=== PATIENT | female | born 1985 | race Caucasian/White ===

== ENCOUNTER → 2018-05-25 10:27 | Outpatient (CLI) | payer OTHER, SELFPAY ==
[2018-05-25 12:52] LABS: Glucose, Dipstick Normal (Normal); Ketone-Dipstick Negative (Negative); Leukocyte Esterase-Dipstick 500 /ul (Negative); Nitrite-Dipstick Negative (Negative); Occult Blood-Urine 10 /ul (Negative); Protein-Dipstick Negative (Negative); Specific Gravity, Urine 1.015 (1.002-1.030); Urine Bilirubin Dipstick Negative (Negative); Urine Urobilinogen Normal (Normal); Urine pH 6.5 (5.0 - 8.0)
[2018-05-25 12:55] LABS: Color, Urine Yellow (Yellow); Urine Clarity Clear (Clear)
[2018-05-25 13:00] LABS: Absolute Lymphocyte Count 2.06 X10^3/ul (0.83-4.51); Absolute Neutrophil Count 7.7 X10^3/uL (2.0-7.7); Basophil# 0.01 X10^3/uL; Basophil% 0.1 % (0-1); Eosinophil# 0.03 X10^3/uL; Eosinophils% 0.3 % (0-5); Hematocrit 42.1 % (37-47); Hemoglobin 13.5 g/dl (12.0-15.0); Lymphocyte # 2.06 X10^3/ul (4.0); Lymphocyte % 19.7 % (19-41); Mean Corp Hgb Conc 32.1 g/gl (32-36); Mean Corpuscular Hgb 26.5 pg (27.0-32.0); Mean Corpuscular Volume 82.7 fL (81-99); Mean Platelet Vol. 10.4 fl (6.2-12.0); Monocyte# 0.68 X10^3/uL; Monocyte% 6.5 % (0-10); Neutrophil # 7.65 X10^3/uL (2.7-7.7); Neutrophil % 73.1 % (47-70); POSITIVE COUNT NO; POSITIVE DIFFERENTIAL NO; POSITIVE MORPHOLOGY NO; Platelet Count 214 K/mm3 (150-450); RBC Distribution Width CV 13.8 % (11.6-14.6); RBC Distribution Width SD 41.5 fl (35.1-43.9); Red Blood Count 5.09 M/mm3 (4.2-5.4); White Blood Count 10.5 K/mm3 (4.4-11.0)
[2018-05-25 13:18] LABS: Thyroid Stim Hormone (TSH) 0.53 uIU/mL (0.358-3.74)
[2018-05-25 13:59] LABS: HIV - WCH Non-Reactive (Nonreactive); Rubella IgG 487.2 IU/mL
[2018-05-26 03:51] LABS: Prenatal RPR NONREACTIVE (NONREACTIVE)
[2018-05-26 10:33] LABS: HEPATITIS B SURFACE AG Negative (Negative); Hep C Antibodies <0.1 s/co ratio (0.0-0.9)
== END ==
PROVIDERS: Visit Provider Obstetrics & Gynecology
DX: Z34.81 Encounter for supervision of other normal pregnancy, first trimester (principal)
CPT/HCPCS: 36415; 81002; 84443; 85025; 86703; 86762; 86803; 87340

== ENCOUNTER → 2018-09-19 09:02 | Outpatient (CLI) | payer OTHER, SELFPAY ==
[2018-09-19 10:48] LABS: Hematocrit 40.9 % (37-47); Hemoglobin 12.8 g/dl (12.0-15.0); Mean Corp Hgb Conc 31.3 g/gl (32-36); Mean Corpuscular Hgb 27.3 pg (27.0-32.0); Mean Corpuscular Volume 87.2 fL (81-99); Mean Platelet Vol. 10.7 fl (6.2-12.0); Platelet Count 171 K/mm3 (150-450); RBC Distribution Width CV 14.1 % (11.6-14.6); RBC Distribution Width SD 43.7 fl (35.1-43.9); Red Blood Count 4.69 M/mm3 (4.2-5.4); White Blood Count 11.9 K/mm3 (4.4-11.0)
[2018-09-19 10:49] LABS: Scan Indicated on CBC? Y/N NO
[2018-09-19 10:53] LABS: Glucose Challenge Gest 1H 50g 97 mg/dL (70-140)
== END ==
PROVIDERS: Visit Provider Obstetrics & Gynecology
DX: Z34.82 Encounter for supervision of other normal pregnancy, second trimester (principal)
CPT/HCPCS: 82950; 85027

== ENCOUNTER → 2018-11-22 09:52 | Outpatient (CLI) | payer OTHER, SELFPAY | PROVIDERS: Visit Provider Obstetrics & Gynecology | DX: Z36.85 Encounter for antenatal screening for Streptococcus B (principal) | CPT/HCPCS: 87077; 87081; 87186 ==

== ENCOUNTER 2018-12-14 04:50 | Inpatient (IN) | payer OTHER, SELFPAY ==
[2018-12-14] MEDS: Lactated Ringers 1,000 ML 50 ML IV ×2 (05:36→06:46)
[2018-12-14 06:03] VITALS: BMI 26.5
--- NOTE | 2018-12-14 06:03 | HP.PCM_ITS ---
History and Physical Date of Admission: 12/14/18 HISTORY AND PHYSICAL (12/14/2018) Name: ESTEBAN YING OB Physician: SHERI [place]'s Physician: DR. JACQUI HORTON ...................................................................... : 1985 Age: 33 Address: [address] [place] [address] Phone: (h) [phone] (o) [phone] Insurance Carrier: [employer] [id number] Emergency Contact: STEPHAN ORELLANA [phone] ...................................................................... History of present illness: 33-year-old multiparous patient presents in active labor. care has been uneventful otherwise. Final CLINT: 12/13/18 By Ultrasound: 11w1d PARITY: (G-Total Pregnancies P-Fullterm,Premature,Induced AB,Spont AB, Ectopics, Multiple,Living) CLINT CONFIRMATION: By LMP: 03/01/18 Initial Exam: 12/06/18 By First Ultrasound Exam: 12/13/18 Final CLINT: 12/13/18 OB PROBLEM LIST: 3 prior first trimester losses. taking prometrium 400mg at HS as directed Declines MSAFP and CF testing 's father has Hemophilia ALLERGIES: NKDA MEDICATIONS: 27-0.8 mg tablet One pill by mouth once a day Prometrium 200 mg capsule take 2 caps q hs until 12 wk EGA SOCIAL HISTORY: Smoking - Never Alcohol Use - denies drinking Diet - balanced Diet, caffeine < 2 drinks per day and drinks 8 glasses water daily Lifestyle - low stress lifestyle and Exercise - regular Employer - [employer] Job Description - Rentals Coordinator Illicit Drug Use - denies use of street drugs Sexual Activity - and [employer] Residence - lives with Place of - [place] Hours Worked - 6-8 hrs/week Spouse-Sig Other Name - Stephan Spouse-Sig Other Occupation - [employer] Spouse-Sig Other Phone No - [phone] cell Children Name(s) - Gabrielle (EB), Ron (girl) (EB) PRIOR DELIVERY HISTORY DEL DATE GEST LAB WT LB WT OZ TYPE ANES LABOR TX May 12 6 0 0 0 Sab None No 01 Nov 13 8 0 0 0 Sab None No 14 Feb 16 6 0 0 0 Vag None No 18 Apr 17 40 9 8 15 Vagin Epidural No 26 Oct 14 41 7 7 6 Vag Epidural No ANTEPARTUM FLOW CHART VISIT GE RTC FU F F DC U U DATE WK MD WKS HT PN HR M SS BP ED WT DC GL D EF ST __ ____ ___ __ __ ___ __ __ __ ___ __ __ __ ___ __ November ELB 1 39 V + + 126/76 0 170 - - 3 50 -2 November ELB 1 36 V + + 126/70 170 - - 3 50 -2 November ELB 1 36 V + + 110/80 0 167 - - 3 hi November ELB 1 37 V + + 102/80 0 171 tr - 2+ 75 -2 Oct ELB 1 36 V + + 110/68 0 169 tr - 15 Oct ELB 2 33 - + + 102/70 0 167 - - 01 Oct ELB 2 31 - + + 110/68 sl 166 tr - Oct 14 ELB 2 30 - + + 100/70 0 165 tr - 05 Oct 11 ELB 2 28 - + + 128/64 0 163 - - 04 Sep 09 ELB 4 24 - + + 100/70 0 156 tr - 07 Aug 05 ELB 4 - V U+ + 108/64 153 - - 03 Jun 30 ELB 5 - - + O 108/64 151 tr - 08 May 28 ELB 4 - - U+ O 104/70 151 - - ANTEPARTUM NOTE(S): Dec 13 2018: doing well, occ. contactions light spotting Dec 06 2018: No problems Nov 29 2018: feeling well. Cervix check. November 22 2019: see note Nov 13 2019: declines GBS today Oct 30 2019: Oct 16 2019: see note Oct 04 2018: doing well, reviewed FM, PTL Sep 19 2018: Glucola Aug 21 2018: doing well, glucola given Jul 24 2018: No problems Jun 19 2018: May 25 2018: COMPREHENSIVE ANTEPARTUM NOTE(S): Nov 28 2018: H taken to OB. tkg Nov 25 2018: GBS POSITIVE EB Nov 22 2018: Ying is being seen for PNV. Pt is feeling well. She states she has pulled muscle pain when coughing due to vomitig from stomach bug the beginning of this week. GBS today. AM Nov 19 2018: Call Msg from 9:25 AM this morning. Pt of Dr. Prather. Ying called w/concern of vomiting since 11 PM last night. States apprx every hour. No diarrhea. Temp 98.4. Thinks she may have food poisoning as she and her children went to a friend's for dinner last night. Her 4 and 2 yrs olds have also been vomiting. Most recent episode for Ying around 8:30 this morning adding she thinks it is beginning to slow down. Has been trying to take sips of water. Wondering if she needed to go to the hosp? Reporting good FM. Offered she can go in for fluids, but given it is slowing down, could try to focus on oral fluids for the next couple of hours at home and see how it goes. If still vomiting, then would need to go in for fluids. She is willing to try it at home this morning. Try drinking slightly warm water, not cold, not hot, sprite, gingerale, tea, clear gatorade. Want to talk to her again by noon. Ying called back @ 12:40 stating she has had no further vomiting, ate a piece of cinnamon toast, urine is not dark-- light yellow. She is tolerating fluids, feeling better, but very tired. Recommended for most of today to stick to clear fluids. If by tonight she wants to try toast again, plain, no butter, plain baked potato, banana, apple sauce-- go easy on the food and concentrate on fluids. Try to rest this afternoon as she was most of the night. can help with her children. To call back if further concerns. Nov 13 2018: DECLINES LARC. GBS next visit. EB Oct 30 2018: Ying is here for visit with two daughters. Baby active. No edema- ring easily removable. Doing well. Sleeping less but due to kids being sick with respiratory illnesses. No specific concerns today. Occ BH contr. Raiza ARIAS. Oct 16 2018: Ying relates occ vaginal discharge. Reviewed signs and sx of yeast which is very common in . May take probiotic if desires. Barrier cream to external skin with high progesterone effect of . Can ck if persists and yeast medication does not work. LMT Sep 19 2018: Hgb 12.8 g/dl. Glucola 97. EB Jul 24 2019: Some cramping after IC. More pelvic pain this . Reviewed use of condoms or may take tylenol prn for cramping after intercourse (likely due to prostaglandins) . Maternity support band recommended for her pelvic achiness and hip pain with standing. EB Jun 19 2018: Reviewed labs. Feeling well. 1# wt gain noted. No FM yet. RTO in 5 wk for 20 wk sono and PNV. EB May 25 2018: PAP and cultures NEG. NOB sono, NOB nurse and PNV today. RTO in 4 wk for PNV. Dates changed by 11 wk sono to 12/13/18. EB O pos, RI. Hgb 13.5 g/dl. TSH wnl. EB May 25 2018: Ying is here for her NOB visit following US, PNV and labs draw to follow. She is a A3 with an CLINT of 12/13/2018 and current GA is 11 w 1 d. Ying and her , Stephan, have two daughters at home, ages 1- 1/2 and 4. Past history updated, GBS + hx. Delivery at [facility] with a labor epidural is planned, and she will breastfeed. Ying is an established pt at this practice, and she is familiar with office practice patterns. Office ed materials provided at MM visit, and she is aware of danger signs/emergencies to report and common OTC medications approved/not approved for use during . She is a life long non-smoker, and denies use of drugs or ETOH. Genetic Screening form completed; Ying has had 3 first trimester SAB's, and her 's father has Hemophilia. MSAFP and CF testing declined; consent signed as such. Mild nausea noted, she states that she takes Unisom at bedtime and takes Vitamin B6 50 mg twice a day and that this helps. Reviewed trying small frequent meals with protein included throughout the day and having adequate water hydration of at least one gallon per 24 hours. She takes an OTC vitamin containing DHA. Round ligament pain discussed, Hx of UTI's, will contact office if a UTI is suspected. She eats a well balanced diet, and drinks mostly water, and she does not consume caffeine. Reviewed calor ic needs, recommended weight gain, and limiting empty calories. Printed guide for food safety during provided with review. She keeps active with her children, encouraged taking walks 5 x/week for at least 30 minutes. Kegel exercises and lifting restrictions reviewed. Ying denies questions following NOB visit, and voices understanding of all information provided during same. AW New May 01 2018: Cervical cultures NEG EB Apr 27 2018: Here for confirmation of appt. . Cervical cultures today and pap. EB Apr 27 2018: Ying is here for missed menses appt. She relates LMP of 03/01, + UPT today in office, approx EDC 12/06/18. Feels she ovulates late and our EDC not likely correct and would like u/s to confirm dates and viability with hi story of 3 prior losses. Having all the right sx, nausea, fatigue. Ok to take B6 and Unisom for nausea. She is taking PNV and Prometrium. Pap and cultures will be done today. Educational materials are provided and reviewed. OTC meds for minor discomforts reviewed. Increased fluids, calories, and exercise of 30 minutes 5x/wk encouraged. LMT REVIEW OF SYSTEMS: GENERAL - Denies fever, or chills SKIN - Denies rash, new skin lesions, or change in moles EYES - Denies blurred vision, or change in visual acuity EARS - Denies ear pain, or difficulty hearing NOSE - Denies nasal congestion, discharge, or bleeding MOUTH - Denies sore throat, or difficulty swallowing NECK - Denies pain or swelling RESPIRATORY - Denies shortness of breath, cough, wheezing CARDIOVASCULAR - Denies palpitations, chest pain, orthopnea, PND, peripheral edema, syncope or claudication GASTROINTESTINAL - Denies nausea, vomiting, diarrhea, constipation, Denies abdominal pain, melena and or bright red blood GENITOURINARY - Denies dysuria, frequency of urination, urgency, or hesitancy MUSCULOSKELETAL - Denies joint or muscle pain, or back pain NEUROLOGICAL - Denies localized numbness, weakness, or tingling PSYCHIATRIC - Denies depression, anxiety, substance abuse or suicide attempts ENDOCRINE - Denies heat or cold intolerance, weight loss or gain, increasing thirst HEMATO-IMMUNOLOGIC - Denies easy bruising, bleeding, oral ulcerations or recurrent infections GENETICS SCREENING: Age 35+ years: No Thalassemia: No Neural Tube Defect: No Down Syndrome: No KENNETH-SACHS: No Sickle Cell Disease: No Hemophilia: Yes Musc. Dystrophy: No Cystic Fibrosis: No-declines screening [place] Chorea: No Mental Retardation: No Fragile X: No Other genetic: No Other defects: No SABs/still births: Yes x3 Drugs since LMP: Yes INFECTION HISTORY: High risk AIDS: No High risk Hepatitis: No Exposed to TB: No Exposed to Herpes: No Rash/viral illness since LMP: No History of STD: No MENSTRUAL HISTORY: *Menses Amount/Duration: 5 daysMenses Regularity: RegularFrequency: monthlyMenarche (Age Onset): 15HCG+: 03/11/2016* PAST SUMMARY: PARITY: 1. Total Pregnancies............ 6 2. Full Term Pregnancies........ 2 3. Premature.................... 0 4. Abortions - Induced.......... 0 5. Abortions - Spontaneous...... 3 6. Ectopics..................... 0 7. Multiple Births.............. 0 8. Living Children.............. 2 PAST #1: Date of :.................. 05/18/13 Gestation Weeks:................ 8 Length of labor(hours):......... 0 Sex:............................ Weight-lbs:............... 0 Weight-oz:................ 0 Type of Delivery:............... Sab Type of Anesthesia:............. None Place of Delivery:.............. none Treatment of Labor?:.... No Comment: PAST #2: Date of :.................. 05/18/12 Gestation Weeks:................ 6 Length of labor(hours):......... 0 Sex:............................ Weight-lbs:............... 0 Weight-oz:................ 0 Type of Delivery:............... Sab Type of Anesthesia:............. None Place of Delivery:.............. none Treatment of Labor?:.... No Comment: PAST #3: Date of :.................. 05/12/14 Gestation Weeks:................ 41 Length of labor(hours):......... 7 Sex:............................ F Weight-lbs:............... 7 Weight-oz:................ 6 Type of Delivery:............... Vag Type of Anesthesia:............. Epidural Place of Delivery:.............. [facility] Treatment of Labor?:.... No Comment: GPBSTREP+ PAST #4: Date of :.................. 08/31/15 Gestation Weeks:................ 6 Length of labor(hours):......... 0 Sex:............................ UNKNOWN Weight-lbs:............... 0 Weight-oz:................ 0 Type of Delivery:............... Vag Type of Anesthesia:............. None Place of Delivery:.............. HOME Treatment of Labor?:.... No Comment: SAB PAST #5: Date of :.................. 11/02/16 Gestation Weeks:................ 40 Length of labor(hours):......... 9 Sex:............................ F Weight-lbs:............... 8 Weight-oz:................ 15 Type of Delivery:............... Vaginal Type of Anesthesia:............. Epidural Place of Delivery:.............. [facility] Treatment of Labor?:.... No Comment: GBS + PHYSICAL EXAMINATION General Appearence: 33 yo female in no acute distress Vital Signs: AF, VSS Heart: RRR without rubs or gallops Lungs: CTA x 2 Breasts: deferred Abdomen: gravid Pelvis: Cervix: 6-7/90/-1 Presentation: cephalic Station: Fetus: Size: AGA Movement: present Heart: present Impression /Plan: 40+ week intrauterine in active labor. Preparations in progress for delivery. Expect spontaneous vaginal delivery.
[2018-12-14 06:23] LABS: Absolute Lymphocyte Count 3.33 X10^3/ul (0.83-4.51); Absolute Neutrophil Count 9.6 X10^3/uL (2.0-7.7); Basophil# 0.01 X10^3/uL; Basophil% 0.1 % (0-1); Eosinophil# 0.04 X10^3/uL; Eosinophils% 0.3 % (0-5); Hematocrit 39.7 % (37-47); Hemoglobin 12.9 g/dl (12.0-15.0); Lymphocyte # 3.33 X10^3/ul (4.0); Lymphocyte % 23.8 % (19-41); Mean Corp Hgb Conc 32.5 g/gl (32-36); Mean Corpuscular Hgb 26.4 pg (27.0-32.0); Mean Corpuscular Volume 81.2 fL (81-99); Mean Platelet Vol. 11.4 fl (6.2-12.0); Monocyte# 0.96 X10^3/uL; Monocyte% 6.9 % (0-10); Neutrophil % 68.5 % (47-70); Platelet Count 161 K/mm3 (150-450); RBC Distribution Width CV 13.8 % (11.6-14.6); RBC Distribution Width SD 40.5 fl (35.1-43.9); Red Blood Count 4.89 M/mm3 (4.2-5.4)
[2018-12-14 06:31] LABS: POSITIVE COUNT NO; POSITIVE DIFFERENTIAL NO; POSITIVE MORPHOLOGY NO
--- NOTE | 2018-12-14 07:42 | PCM.PN.BLA ---
Progress Note LABOR PROGRESS NOTE Feeling uncomfortable. Sitting up now for epidural. AVSS EFM: 140s avg variability. Accels. Ucs q 2-4 mins CX: 6/70/-1 A/P: 40 1/7 wk EGA labor. Admit. Plans epidural. GBS positive NKDA ABX for GBS prophylaxis. Anticipate
[2018-12-14] MEDS: fentaNYL-bupivacaine (epidural) 100 ML BAG EPIDURAL (07:45)
[2018-12-14] MEDS: Oxytocin 30 units/NS 500 ml 30 UNITS/500 ML IV.SOLN 334 UNITS IV (09:25)
[2018-12-14] MEDS: Oxytocin 30 units/NS 500 ml 30 UNITS/500 ML IV.SOLN 167 UNITS IV (10:15)
[2018-12-14] MEDS: 0.9% Saline Lock 10 ML Syringe IV (11:13)
[2018-12-14 16:53] VITALS: BP 124/86; PULSE 77; RESP 20; TEMP 36.6
[2018-12-14] MEDS: Ibuprofen 600 MG Tablet PO (18:23)
[2018-12-14] MEDS: Senna/Docusate Sodium 1 Tablet PO (18:24)
--- NOTE | 2018-12-14 19:31 | PCM.OPRPT ---
Vaginal Delivery Maternal Presentation: Active Labor 40 1/7 wk spont labor Amniotic Membrane Rupture Type: Artificial Amniotic Fluid Description: Clear Final CLINT: 12/13/18 Gestational age: 40 Weeks and 1 Days Date of Procedure: 12/14/18 Pre-Operative Diagnosis: 40 1/7 wk labor Post-Operative Diagnosis: same Surgery/ Procedure Performed: Spontaneous Vaginal Delivery Type of Anesthesia: Epidural Description of Procedure: of a pena viable female over midline episiotomy. head delivered OA. OP and nares bulb suctioned on perineum. No nuchal cord, shoulders delivered easily. to maternal abdomen Delayed cord clamping. Cord clamped times two and cut Infant 3866 gm. Ap 03/26 PP exam: no lacerations. Midline episiotomy repaired to hemostatic, intact with 3-0 Vicryl under epidural anesthesia Placenta delivered by spont expulsion, expression 3V cord normal appearing and intact with trailing membranes. EBL 200 cc pt and infant tolerated delivery well To recovery in stable condition Ray Jill and needle counts correct times two. Presentation: Vertex Placental Delivery Description: Spontaneous, Expressed Placenta Disposition: [facility] Cord Vessel Description: 3 Vessels Cord Entanglement: None Drain: - - str cath Red martínez... 100 cc urine out. Estimated Blood Loss: 200 Infant A gender: Female (1 minute): 9 (5 minute): 9 Episiotomy Description: Midline Laceration: None Medications given after delivery: IV Pitocin Complications: None
[2018-12-14 20:20] VITALS: BP 113/67; PULSE 82; RESP 20; TEMP 36.8
[2018-12-14 23:50] VITALS: BP 130/76; PULSE 58; RESP 16; TEMP 36.4
[2018-12-15 04:10] VITALS: BP 117/71; PULSE 75; RESP 16; TEMP 36.6; O2SAT 98
--- NOTE | 2018-12-15 06:38 | PCM.PN.OB ---
Subjective: PPD#1 Doing well. Minimal cramping. Breast feeding and baby with cluster feeding overnight. States baby may be able to go home late today. Objective: Sitting up in bed holding sleeping baby - Physical Exam General: Alert, Oriented x3, Cooperative, No apparent distress HEENT: Atraumatic Neck: Supple Psych/Mental Status: Normal Affect Vital Signs Temp Pulse Resp BP Pulse Ox 97.8 F 75 16 117/71 98 12/15/18 04:10 12/15/18 04:10 12/15/18 04:10 12/15/18 04:10 12/15/18 04:10 Oxygen Delivery Method Room Air Weight: 76.9 kg Body Mass Index (BMI) 26.5 Intake and Output for Last 24 Hours 12/13/18 12/14/18 12/15/18 23:59 23:59 23:59 Intake Total 100 / 100 Output Total 1999 Balance -1900 / -190 Laboratory Tests Past 24 Hrs 12/14/18 05:36 Blood Type O POSITIVE Antibody Screen NEGATIVE Medical Necessity - Tobacco Use Smoking Status: Never smoker Assessment/Plan PPD#1 Stable pp. continue care. Potential discharge home later today if baby is released.
--- NOTE | 2018-12-15 06:43 | PCM.DCVAG ---
Discharge Diet: No Restrictions Discharge Activity: May Shower, May Take a Tub Bath May resume sexual activity in: 4-6 weeks Additional Activity Instructions:: Nothing in the vagina for 4-6 weeks. You may return to work/school in 6 weeks. Additional Instructions: If you experience any of the following, contact your healthcare provider. Bleeding that soaks a pad every hour for 2 hours Fever 100.4 or higher Unrelieved abdominal pain Problems urinating (including inability to urinate or burning while urinating). Visual changes Severe headache Flu-like symptoms Pain or redness in one of both of your breasts Pain, warmth, tenderness or swelling in your legs, especially the calf area Frequent nausea and vomiting Symptoms of depression or anxiety If you experience any of the following, call 911 or go to the nearest Emergency Room. Chest pain Problems breathing Seizure activity Partial or complete paralysis of a body part, slurred speech, weakness or drooping of the face, or a sudden inability to walk or hold your balance Allergies/Adverse Reactions: Allergies No Known Allergies Allergy (Verified 12/14/18 06:01) Medications to take at Discharge Vits [Prenatabs FA ] 1 tablet PO DAILY 05/12/14 Omeprazole Magnesium [Prilosec Otc] 20 mg PO DAILY 12/14/18 Please Follow Up With: Jenna Prather MD - [phone] When: Call to make an appointment with your doctor in 6 weeks. Primary Care Physician: Care Physician,No Primary [Primary Care Provider] - Test Results: Test results from this visit will be discussed in further detail at your follow-up appointment, if applicable. Proposed Discharge Date: 12/15/18
--- NOTE | 2018-12-15 06:44 | DCINST_ITS ---
Discharge Diet: No Restrictions Discharge Activity: May Shower, May Take a Tub Bath May resume sexual activity in: 4-6 weeks Additional Activity Instructions:: Nothing in the vagina for 4-6 weeks. You may return to work/school in 6 weeks. Additional Instructions: If you experience any of the following, contact your healthcare provider. * Bleeding that soaks a pad every hour for 2 hours * Fever 100.4 or higher * Unrelieved abdominal pain * Problems urinating (including inability to urinate or burning while urinating). * Visual changes * Severe headache * Flu-like symptoms * Pain or redness in one of both of your breasts * Pain, warmth, tenderness or swelling in your legs, especially the calf area * Frequent nausea and vomiting * Symptoms of depression or anxiety If you experience any of the following, call 911 or go to the nearest Emergency Room. * Chest pain * Problems breathing * Seizure activity * Partial or complete paralysis of a body part, slurred speech, weakness or drooping of the face, or a sudden inability to walk or hold your balance Allergies/Adverse Reactions: Allergies No Known Allergies Allergy (Verified 12/14/18 06:01) Medications to take at Discharge Vits [Prenatabs FA ] 1 tablet PO DAILY 05/12/14 Omeprazole Magnesium [Prilosec Otc] 20 mg PO DAILY 12/14/18 Please Follow Up With: Jenna Prather MD - [phone] When: Call to make an appointment with your doctor in 6 weeks. Primary Care Physician: Care Physician,No Primary [Primary Care Provider] - Test Results: Test results from this visit will be discussed in further detail at your follow- up appointment, if applicable. Proposed Discharge Date: 12/15/18
[2018-12-15 09:00] VITALS: BP 128/85; PULSE 102; RESP 16; TEMP 37.1
[2018-12-15] MEDS: Prenatal Vits Tablet 1 TABLET PO (09:33)
[2018-12-15] MEDS: Ibuprofen 600 MG Tablet PO ×2 (09:33→17:07)
[2018-12-15 14:00] VITALS: BP 122/66; PULSE 68; RESP 16; TEMP 36.1
[2018-12-15 19:45] VITALS: BP 119/77; PULSE 77; RESP 16; TEMP 36.8; O2SAT 97
[2018-12-16 02:00] VITALS: BP 118/70; PULSE 67; RESP 16; TEMP 35.8; O2SAT 97
[2018-12-16 09:00] VITALS: BP 119/79; PULSE 94; RESP 16; TEMP 36.6
--- NOTE | 2018-12-16 10:12 | PCM.PN.OB ---
Subjective: Patient without complaints. Minimal vaginal bleeding. Ready to go home today. - Physical Exam Vital Signs Temp Pulse Resp BP Pulse Ox 97.9 F 94 16 119/79 97 12/16/18 09:00 12/16/18 09:00 12/16/18 09:00 12/16/18 09:00 12/16/18 02:00 Oxygen Delivery Method Room Air Weight: 169 lb 8.568 oz Body Mass Index (BMI) 26.5 Intake and Output for Last 24 Hours 12/14/18 12/15/18 12/16/18 23:59 23:59 23:59 Intake Total 100 / 100 Output Total 1999 Balance -1900 / -1900 Medical Necessity - Tobacco Use Smoking Status: Never smoker Assessment/Plan Doing well day #2 status post spontaneous vaginal delivery. Will release to home with routine instructions.
== END 2018-12-16 10:30 | disposition home or self-care (01) | DRG 807 ==
PROVIDERS: Obstetrics & Gynecology; Admitting Provider Obstetrics & Gynecology; Referring Provider Obstetrics & Gynecology; Visit Provider Obstetrics & Gynecology
DX: O99.824 Streptococcus B carrier state complicating childbirth (principal); Z37.0 Single live birth; Z3A.40 40 weeks gestation of pregnancy
CPT/HCPCS: 59050; 85025; 86850; 86900; 99218; J7120; A4216; G0378

== ENCOUNTER 2019-07-02 17:13 | Emergency (ER) | payer OTHER, SELFPAY ==
[2019-07-02 17:15] VITALS: BP 149/80; PULSE 137; RESP 29; TEMP 39.2; O2SAT 99; BMI 23.4
--- NOTE | 2019-07-02 17:22 | NURSING ---
NO OLD EKGS
[2019-07-02 17:24] VITALS: O2SAT 99
--- NOTE | 2019-07-02 17:27 | EKG12_ITS ---
Test Reason : TACHY Blood Pressure : / mmHG Vent. Rate : 138 BPM Atrial Rate : 138 BPM P-R Int : 122 ms QRS Dur : 078 ms QT Int : 280 ms P-R-T Axes : 058 051 017 degrees QTc Int : 424 ms Sinus tachycardia Nonspecific ST abnormality Abnormal ECG Confirmed by LUISA RIOS, WILBUR ([id number]), movie editor RIZWAN FLANAGAN ([id number]) on 07/04/2019 12:56:43 PM Referred By: XENIA Confirmed By:WILBUR MORAN MD
--- NOTE | 2019-07-02 17:28 | RAD_ITS ---
STUDY: X-RAY CHEST REASON FOR EXAM: Female, 33 years old. Chest pain TECHNIQUE: AP COMPARISON: None. FINDINGS: EKG leads project over the chest. The lungs are clear and expanded. There is no demonstrated pleural abnormality. Normal size heart. Normal mediastinum and josey. Normal visualized pulmonary arteries. Normal visualized aortic arch and descending thoracic aorta. Normal visualized thoracic spine. Normal visualized ribs, clavicles, and shoulders. There is no demonstrated abnormality of the visualized soft tissue structures of the upper abdomen. RAD/Chest 1 View (Portable) IMPRESSION: Nonacute portable x-ray examination of the chest. Electronically Signed: Samy Vasquez MD ([place]) at 17:51 EST , Service support ,
--- NOTE | 2019-07-02 17:28 | ED.VIS.GEN ---
History of Present Illness Chief Complaint: Shortness of Breath Informant: Patient Onset: Today Narrative: Here with significant other for evaluation. 6 months breast-feeding. Reports today not feeling well having chills and rigors and fevers. No cough. Sick contacts with 6-month who had a fever. No flu vaccination this year. No urinary symptoms. Vomiting for 5 minutes on the right heel with no hematemesis. No diarrhea. Denies cough. States was breathing fast therefore having contractions to the arms and legs. No chest pains. Prior similar symptoms: No Past Medical History - Allergies and Home Meds Allergies/Adverse Reactions: Allergies No Known Allergies Allergy (Verified 07/02/19 17:20) Primary Care Physician: Care Physician,No Primary [Primary Care Provider] - Smoking Status: Never smoker Review of Systems General: Reports: Chills, Fever. Denies: Sweats Eyes: Denies: Visual changes - bilaterally, Diplopia ENT: Denies: Rhinorrhea, Sore throat Cardiovascular: Denies: Chest pain, Palpitations Respiratory: Denies: Dyspnea, Cough, Dyspnea on exertion Gastrointestinal: Denies: Abdominal pain, Nausea, Vomiting, Diarrhea, Melena, Hematochezia Genitourinary: Denies: Dysuria, Hematuria, Frequency Musculoskeletal: Reports: Back pain. Denies: Extremity Pain Skin: Denies: Rash, Wounds Neurological: Denies: Headache, Weakness, Numbness Physical Exam Vital Signs/Narrative: Vital Signs Temp Pulse Resp BP Pulse Ox 07/02/19 17:15 102.5 F H 137 H 29 H 149/80 H 99 Inital Vital Signs reviewed: Yes General: Well nourished, Well developed Head: Normocephalic, Atraumatic Eyes: Perrl, EOMI ENT: Moist mucous membranes, No rhinorrhea Neck: Supple, Nontender Cardiovascular: Regular rate, Regular rhythm, No murmurs, Tachycardia Respiratory: No distress, CTA bilaterally, Chest nontender Abdomen: Soft, Nontender, Nondistended, Normal bowel sounds Back: Nontender, Normal Inspection Extremities: Nontender, No edema, - - Contractures hands and feet, soft compartments throughout, pulses intact x4. Skin: Normal color, No rash Neurological: Alert, Oriented x3, Cranial nerves II-XII grossly intact, Normal Strength, Normal Sensation Psychological: Normal affect, Normal Mood Diagnostic/Tx/Re-eval Clinical Impression(s) from Imaging Studies Chest X-Ray 07/02/19 17:28 IMPRESSION: Nonacute portable x-ray examination of the chest. Electronically Signed: Samy Vasquez MD (Brooks) at 17:51 EST , Service support , Abnormal Lab Results 07/02/19 07/02/19 07/02/19 17:25 17:25 17:25 WBC 7.1 RBC 5.15 Hgb 13.4 Hct 42.0 MCV 81.6 MCH 26.0 L MCHC 31.9 L RDW Std Deviation 38.4 RDW Coeff of Maximo 13.0 Plt Count 178 MPV 10.2 Immature Gran % (Auto) 0.100 Neut % (Auto) 80.8 H Lymph % (Auto) 16.5 L [place] % (Auto) 0.8 Eos % (Auto) 1.7 Baso % (Auto) 0.1 Absolute Neuts (auto) 5.7 Absolute Lymphs (auto) 1.17 Nucleated RBC % 0 Differential Comment SCANNED Reactive Lymphocytes RARE Platelet Estimate ADEQUATE RBC Morphology NORM C+C PT 14.1 INR 1.1 APTT 26.6 Sodium 141 Potassium 3.9 Chloride 105 Carbon Dioxide 18.0 L Anion Gap 18 H BUN 13 Creatinine 1.22 H Estim Creat Clear Calc 64.97 Est GFR (MDRD) Af Amer 66 Est GFR (MDRD) Non-Af 54 L BUN/Creatinine Ratio 10.7 Glucose 130 H Lactic Acid Calcium 9.1 Total Bilirubin 1.10 H AST 13 L ALT 19 Alkaline Phosphatase 136 H Total Protein 7.4 Albumin 4.3 Globulin 3.1 Albumin/Globulin Ratio 1.4 Urine Color Urine Clarity Urine pH Ur Specific [place] Urine Protein Urine Glucose (UA) Urine Ketones Urine Occult Blood Urine Nitrite Urine Bilirubin Urine Urobilinogen Ur Leukocyte Esterase Urine RBC Urine WBC Ur Squamous Epith Cells Urine Bacteria Urine Mucus Urine Test 07/02/19 07/02/19 07/02/19 17:25 18:58 20:45 WBC RBC Hgb Hct MCV MCH MCHC RDW Std Deviation RDW Coeff of Maximo Plt Count MPV Immature Gran % (Auto) Neut % (Auto) Lymph % (Auto) [place] % (Auto) Eos % (Auto) Baso % (Auto) Absolute Neuts (auto) Absolute Lymphs (auto) Nucleated RBC % Differential Comment Reactive Lymphocytes Platelet Estimate RBC Morphology PT INR APTT Sodium Potassium Chloride Carbon Dioxide Anion Gap BUN Creatinine Estim Creat Clear Calc Est GFR (MDRD) Af Amer Est GFR (MDRD) Non-Af BUN/Creatinine Ratio Glucose Lactic Acid 7.6 H* 0.8 Calcium Total Bilirubin AST ALT Alkaline Phosphatase Total Protein Albumin Globulin Albumin/Globulin Ratio Urine Color Yellow Urine Clarity Cloudy Urine pH 8.0 Ur Specific [place] 1.010 Urine Protein 30 H Urine Glucose (UA) Normal Urine Ketones 5 H Urine Occult Blood 50 H Urine Nitrite Negative Urine Bilirubin Negative Urine Urobilinogen Normal Ur Leukocyte Esterase 500 H Urine RBC 10-25 SEEN Urine WBC 50-100 SEEN Ur Squamous Epith Cells 0 SEEN Urine Bacteria 0 SEEN Urine Mucus 0 SEEN Urine Test Negative - EKG Initial EKG Interpretation: Sinus Rhythm - Sinus tachycardia rate of 138, nonspecific ST changes. - Medical Decision Making Patient febrile and tachycardic on arrival. Sepsis work-up initiated added influenza which was negative. White count normal electrolytes normal. Culture sent and pending. Her lactic acid returned at 7.6 however she was hyperventilating prior to arrival. She is nontoxic. Her heart rate improved with fluids. She is given 2 L of fluid per sepsis protocol. Urine did note infection signs with leukocytes and white blood cell count. She was covered with Rocephin. Reevaluation she did have mild right CVA tenderness. She is feeling much better on reevaluation. Recheck lactic acid was 0.8. Original is likely respiratory component. She will be treated for complicated UTI for 10 days, Zofran as needed. Signs and some discussed return. Otherwise follow-up with PCP. ED Disposition - Plan for ED Patient: Disposition: Home or Assisted Living Diagnosis: Complicated UTI (urinary tract infection), Fever Instructions: PYELONEPHRITIS, Female (Adult) Prescriptions: Cephalexin [Keflex] 500 mg PO Q8H #30 capsule Ondansetron [Zofran Odt] 4 mg PO Q8H PRN PRN #10 tablet PRN Reason: Nausea Referrals: Care Physician,No Primary [Primary Care Provider] - Maximiliano Jiang DO [NON CLINICAL AFFILIATE] - 5-7 Days
[2019-07-02 17:36] LABS: Absolute Lymphocyte Count 1.17 X10^3/uL (0.83-4.51); Absolute Neutrophil Count 5.7 X10^3/uL (2.0-7.7); Basophil# 0.01 X10^3/uL; Basophil% 0.1 % (0-1); Eosinophil# 0.12 X10^3/uL; Eosinophils% 1.7 % (0-5); Hemoglobin 13.4 g/dL (12.0-15.0); Lymphocyte # 1.17 X10^3/ul (4.0); Lymphocyte % 16.5 % (19-41); Mean Corp Hgb Conc 31.9 g/dL (32-36); Mean Corpuscular Volume 81.6 fL (81-99); Mean Platelet Vol. 10.2 fl (6.2-12.0); Monocyte# 0.06 X10^3/uL; Monocyte% 0.8 % (0-10); NRBC Flagged by Analyzer 0 % (0-5); Neutrophil # 5.74 X10^3/uL (2.7-7.7); Neutrophil % 80.8 % (47-70); POSITIVE MORPHOLOGY YES; Platelet Count 178 K/mm3 (150-450); RBC Distribution Width SD 38.4 fl (35.1-43.9); Red Blood Count 5.15 M/mm3 (4.2-5.4); White Blood Count 7.1 K/mm3 (4.4-11.0)
[2019-07-02 17:41] LABS: Differential Indicated SCAN CRITERIA MET
[2019-07-02] MEDS: 0.9% Normal Saline 1,000 ML 999 ML IV ×2 (17:43→19:05)
[2019-07-02 17:46] LABS: International Normalized Ratio 1.1; Partial Thromboplast Time 26.6 Seconds (24.1-36.2); Prothrombin Time (Protime)PT. 14.1 SECONDS (11.7-14.9)
[2019-07-02 17:55] LABS: ALB/GLOB Ratio 1.4 RATIO (0.9-2.4); AST(SGOT) 13 U/L (15-37); Alanine Aminotransfer ALT/SGPT 19 U/L (13-56); Albumin, Serum 4.3 g/dL (3.2-5.0); Alkaline Phosphatase 136 U/L (45-117); Anion Gap 18 (5-15); BUN 13 mg/dL (7-18); BUN/Creat Ratio 10.7 RATIO (10-20); Calcium,Total 9.1 mg/dL (8.5-10.1); Chloride 105 mmol/L (98-107); Creatinine, Serum 1.22 mg/dL (0.55-1.02); EST Glomerular Filtration Rate 54 mL/min (>60); Est Glom Filt Rate - Afr Amer 66 mL/min (>60); Estimated Creatinine Clearance 64.97 ml/min; Globulin 3.1 g/dL (2.2-4.2); Glucose 130 mg/dL (74-106); Potassium 3.9 mmol/L (3.5-5.1); Protein, Total 7.4 g/dL (6.4-8.2); Sodium Level 141 mmol/L (136-145)
[2019-07-02 18:07] LABS: Lactic Acid 7.6 mmol/L (0.4-1.9)
--- NOTE | 2019-07-02 18:10 | ED.RN ---
LACTIC LEVEL 7.6. MD NOTIFIED.
[2019-07-02 18:19] VITALS: BP 111/63; PULSE 106; RESP 16; TEMP 38.6; O2SAT 95
[2019-07-02 18:24] LABS: Differential Comment SCANNED; Platelet Estimate ADEQUATE (ADEQ); Reactive Lymphocyte RARE; Red Cell Morphology NORM C+C NORMAL (NORM C&C)
[2019-07-02 19:00] VITALS: BP 120/76; PULSE 112; RESP 15; TEMP 37.3; O2SAT 98
[2019-07-02 19:17] LABS: Bacteria 0 SEEN /hpf (None Seen); Mucous, Urine 0 SEEN /hpf (<or=2+); Squamous Epithelial Cells - UA 0 SEEN /hpf (5-10)
[2019-07-02 19:39] LABS: Color, Urine Yellow (Yellow); Glucose, Dipstick Normal (Normal); Ketone-Dipstick 5 mg/dl (Negative); Leukocyte Esterase-Dipstick 500 /ul (Negative); Nitrite-Dipstick Negative (Negative); Occult Blood-Urine 50 /ul (Negative); Protein-Dipstick 30 mg/dl (Negative); Urine Bilirubin Dipstick Negative (Negative); Urine Clarity Cloudy (Clear); Urine Urobilinogen Normal (Normal)
[2019-07-02 20:00] VITALS: BP 114/63; PULSE 112; RESP 15; TEMP 37.3; O2SAT 96
[2019-07-02 20:09] LABS: Red Blood Cells-Urine 10-25 SEEN /hpf (0-5); White Blood Cells 50-100 SEEN /hpf (0-5)
[2019-07-02] MEDS: Ceftriaxone 1 GM/50 ML BAG IV (20:53)
[2019-07-02 20:57] LABS: Internal QC Validated? YES +Cl - CLEAR BKGD; Pregnancy, Urine Negative Negative
[2019-07-02 21:31] LABS: Lactic Acid 0.8 mmol/L (0.4-1.9)
[2019-07-02 21:32] LABS: Reflex Lactate? Y
[2019-07-02 22:36] VITALS: BP 111/57; PULSE 104; RESP 16; TEMP 36.7; O2SAT 97
--- NOTE | 2019-07-03 13:05 | ED.RN ---
dr funk aware of gram neg rods. keflex should cover until sensitivity comes back
== END 2019-07-02 22:37 | disposition home or self-care (01) ==
PROVIDERS: Emergency Provider Emergency Medicine
DX: N39.0 Urinary tract infection, site not specified (principal); R50.9 Fever, unspecified; R11.10 Vomiting, unspecified; Z79.899 Other long term (current) drug therapy
CPT/HCPCS: 71045; 80053; 81001; 81025; 83605; 85025; 85610; 85730; 87040; 87077; 87086; 87088; 87186; 87804; 93005; 96361; 96365; 99285; J7030; J7050; A4216

== ENCOUNTER → 2019-09-24 15:55 | Outpatient (CLI) | payer OTHER, SELFPAY | PROVIDERS: Referring Provider Urology; Visit Provider Urology | DX: N39.0 Urinary tract infection, site not specified (principal) | CPT/HCPCS: 87086; 87088; 87186 ==

== ENCOUNTER → 2019-10-01 11:30 | Outpatient (CLI) | payer OTHER, SELFPAY ==
--- NOTE | 2019-10-01 11:33 | US_ITS ---
STUDY: RENAL ULTRASOUND - COMPLETE REASON FOR EXAM: Female, 34 years old. CHRONIC UTI''S MICROSCOPIC HEMATURIA TECHNIQUE: Ultrasound evaluation of the kidneys was performed with real-time and static prabhakar-scale imaging. COMPARISON: None. FINDINGS: RIGHT KIDNEY: Normal location of the right kidney, which is normal in size. The right kidney measures 11 cm x 6.2 cm x 4.8 cm. There is a normal cortex of the right kidney. The renal cortex measures 1.1 cm. There is no right renal mass or cyst. Findings suggest multiple small nonobstructive intrarenal calculi. The largest measures 4 mm x 3 mm x 3 mm. There is no right hydronephrosis. DISTAL RIGHT URETER: There is non-visualization of the distal right ureter. There is no demonstrated right ureterovesical junction calculus. There is a visualized right ureteral jet. LEFT KIDNEY: Normal location of the left kidney, which is normal in size. The left kidney measures 11.5 cm x 4.9 cm x 4.9 cm. There is a normal cortex of the left kidney. The renal cortex measures 1.1 cm. There is no left renal mass or cyst. Multiple nonobstructive left intrarenal calculi are seen. The largest measuring 5 mm x 4 mm x 3 mm. There is no left hydronephrosis. DISTAL LEFT URETER: There is non-visualization of the distal left ureter. There is no demonstrated left ureterovesical junction calculus. There is a visualized left ureteral jet. BLADDER: The distended urinary bladder has a volume of 555 ml. There is a normal wall thickness of the distended urinary bladder. There is no demonstrated mass within the urinary bladder. There are no demonstrated bladder calculi. US/Kidney and Bladder IMPRESSION: Findings suggestive of multiple nonobstructive bilateral intrarenal calculi. Electronically Signed: Jose Crain, at 15:26 EDT , Service support ,
== END ==
PROVIDERS: PCP Family Medicine; Referring Provider Urology; Visit Provider Urology
DX: N39.0 Urinary tract infection, site not specified (principal)
CPT/HCPCS: 76770

== ENCOUNTER → 2019-12-14 07:59 | Outpatient (CLI) | payer OTHER, SELFPAY | PROVIDERS: PCP Family Medicine; Referring Provider Urology; Visit Provider Urology | DX: N39.0 Urinary tract infection, site not specified (principal) ==

== ENCOUNTER → 2019-12-18 10:47 | Outpatient (CLI) | payer OTHER, SELFPAY ==
--- NOTE | 2019-12-18 10:54 | RAD_ITS ---
STUDY: X-RAY - ABDOMEN/PELVIS REASON FOR EXAM: Female, 34 years old. bilateral kidney stones TECHNIQUE: KUB COMPARISON: None. FINDINGS: Normal visualized lung bases. There is an unremarkable bowel gas pattern. There is no demonstrated free abdominal air. The visualized liver, spleen and kidneys are grossly normal in size and morphology. There are multiple bilateral renal calculi.. Lumbar spine demonstrates scoliosis or splinting convex towards the left There are calcifications in the pelvis bilaterally likely representing phleboliths although coexisting ureteral calculus cannot be excluded RAD/Abdomen Single View IMPRESSION: Bilateral nephrolithiasis. Cannot definitively exclude coexisting ureteral calculus. Clinical correlation recommended Electronically Signed: Berny Lynch MD at 19:40 EDT , Service support ,
== END ==
PROVIDERS: PCP Family Medicine; Referring Provider Urology; Visit Provider Urology
DX: N20.0 Calculus of kidney (principal)
CPT/HCPCS: 74018

== ENCOUNTER 2019-12-26 10:04 | Day surgery (SDC) | payer SELFPAY ==
[2019-12-26] VITALS (7 sets, daily range): BP systolic 109–133; BP diastolic 74–85; PULSE 66–89; RESP 16; TEMP 36.4–37.1; O2SAT 94–100; BMI 23.7
[2019-12-26 10:34] LABS: Internal QC Validated? YES +Cl - CLEAR BKGD; Pregnancy, Urine Negative Negative
[2019-12-26] MEDS: Lactated Ringers 1,000 ML 100 ML IV (10:40)
[2019-12-26] MEDS: Cefazolin 2 GM in 0.9% Normal Saline 100 ML IV (13:01)
--- NOTE | 2019-12-26 13:05 | PCM.HP.STD ---
Problem List (1) Left renal stone Status: Acute History of Present Illness Date of Admission: 12/26/19 Chief Complaint: Left renal calculi The patient is a 34 year old female with multiple large left renal calculi plan to proceed with laser of stones and stent today. Past Medical History Allergies No Known Allergies Allergy (Verified 12/26/19 10:13) Home Medications: Ambulatory Orders Medication Instructions Recorded Vits [Prenatabs FA ] 1 tablet PO DAILY 05/12/14 Norethindrone 1 tab PO DAILY 07/02/19 Surgical History: no surgical history Smoking Status: Never smoker Tobacco Use: Non-smoker Review of Systems Constitutional: Denies: Chills, Fever, Weight Change HEENT: Denies: Head Aches, Sinus Congestion, Sinus Drainage Cardiovascular: Denies: Chest Pain, Palpitations Respiratory: Denies: Cough, Shortness of breath at rest, Sputum production Gastrointestinal: Denies: Abdominal Pain, Nausea, Vomiting Genitourinary: Denies: Dysuria Musculoskeletal: Denies: Joint Pain, Joint Tenderness Skin: Denies: Rash, Wounds Neurological: Denies: Numbness, Tingling, Focal weakness Psychiatric: Denies: Anxiety, Depression, Homicidal Ideations, Suicidal Ideations Hematologic/ Lymphatic: Denies: Easy Bruising, Easy Bleeding VTE Information - Inpt Only VTE Present on Admission: No VTE Mechan Device Prophylaxis: SCD's Patient Problems: Active and Suspected Problems Left renal stone (Acute) - Physical Exam Vitals/I&O's: Vital Signs Temp Pulse Resp BP Pulse Ox 98.4 F 75 16 133/79 H 100 12/26/19 10:32 12/26/19 10:32 12/26/19 10:32 12/26/19 10:32 12/26/19 10:32 Oxygen Delivery Method Room Air Weight: 68.7 kg Body Mass Index (BMI) 23.7 General: Alert, Oriented x3, Cooperative HEENT: Atraumatic, PERRLA, EOMI, Normocephalic Neck: Supple, No JVD, Negative Carotid Bruits Lungs: Clear to auscultation, Normal air movement Cardiovascular: Regular rate, No murmurs Abdomen: Bowel Sounds Present, Soft, Non Tender Extremities: No edema, Capillary Refill Less than 3 Seconds Skin: No rashes, No breakdown Musculoskeletal: No Tenderness to Palpation of Joints or Extremities Neurological: Cranial nerves II-XII grossly intact Psych/Mental Status: Normal Affect, Appropriate Laboratory Results 12/25/19 12:15: COVID-19 (ROXI) Not Detected 12/26/19 : Urine Test Negative Current Medications Lactated Ringer's () 1,000 mls @ 100 mls/hr IV .Q10H BATSHEVA Last Admin: 12/26/19 10:40 Dose: 100 mls/hr Documented by: Assessment/Plan All Active Problems Left renal stone (Acute) Plan to proceed with left ureteroscopy laser lithotripsy of stones and stent left side.
--- NOTE | 2019-12-26 13:10 | PCM.DC.URO ---
Discharge Diet: No Restrictions Discharge Activity: Return to Normal Activity, May Not Drive - for 2 days. Additional Activity Instructions:: Please be aware that pain medications may cause nausea. You should typically eat light foods as you take your pain medication. Pain medication may cause constipation, if this is a problem for you, please discuss with your doctor. Allergies/Adverse Reactions: Allergies No Known Allergies Allergy (Verified 12/26/19 10:13) Medications to take at Discharge Vits [Prenatabs FA ] 1 tablet PO DAILY 05/12/14 Norethindrone 1 tab PO DAILY 07/02/19 Cephalexin [Keflex] 500 mg PO Q8 #15 cap 12/26/19 Hydrocodone/Acetaminophen [[place] 5-325 Tablet] 1 each PO Q4H PRN PRN 5 Days #14 tablet 12/26/19 The following prescriptions were given: Cephalexin [Keflex] 500 mg PO Q8 #15 cap Transmission Status: Pending to [address] Hydrocodone/Acetaminophen [[place] 5-325 Tablet] 1 each PO Q4H PRN PRN 5 Days #14 tablet PRN Reason: Pain Score 1-04/26 Transmission Status: Received by [address] Primary Care Physician: Nash Hopper MD [Primary Care Provider] - Test Results: Test results from this visit will be discussed in further detail at your follow-up appointment, if applicable. Please Follow Up With: Alex Brennan MD - [phone] When: appt next with xray, call office
--- NOTE | 2019-12-26 13:55 | OP.PCM_ITS ---
Problem List (1) Left renal stone Status: Acute Report of Operation Date of Procedure: 12/26/19 Pre-Operative Diagnosis: Left renal calculi multiple Post-Operative Diagnosis: Same Surgery/Procedure Performed:: Cystoscopy, balloon dilation of left ureter, left ureteroscopy laser lithotripsy of stones, left stent placement Description of Surgical Findings:: 34-year-old female taken back to the operating room at the smooth induction of general anesthesia she was placed supine on the table, the urethrovaginal area were prepped and draped in usual sterile fashion, went into the bladder with a 21 [place] rigid cystourethroscope, encountered the trigone identified the left ureteral orifice advanced a balloon dilator of the left ureter orifice over the wire balloon dilated the distal left ureter, this allowed for ureteroscopy. I then went up with the flexible ureteroscope went up to the kidney once I entered the kidney then I inspected she had multiple stones about 2 stones about 1 cm in size in the upper part of the kidney 1 stone by half centimeter midpole of the kidney and then a stone in the mid lower pole the kidney by half centimeter in size used fairly high power and high frequency on the laser and laser all the stones a little tiny pieces took about half an hour to laser all the stones. After all the stones was lasered little tiny pieces then I performed a retrograd e pyelogram then over the wire advanced a stent up in the left kidney left the stent in good position left the string of the stent for extraction in the office next week. Patient's bladder was drained she is taken back to PACU good condition plan to see her next week with an x-ray and will remove the stent. Type of Anesthesia:: General Drains: stent left - Admit VTE Documentation VTE Present on Admission: No VTE Mechan Device Prophylaxis: SCD's
[2019-12-26] MEDS: Ketorolac 15 MG/ML Vial IV (14:55)
== END 2019-12-26 16:14 | disposition home or self-care (01) ==
LOC: SDC 10:06 → AC 10:07
PROVIDERS: Anesthesiology; PCP Family Medicine; Referring Provider Urology; Visit Provider Urology
PROC: 0TJ98ZZ Inspection of Ureter, Via Natural or Artificial Opening Endoscopic (ICD-10-PCS; CPT 52352; principal; 2019-12-26 11:50)
DX: N20.0 Calculus of kidney (principal); Z11.59 Encounter for screening for other viral diseases
CPT/HCPCS: 00918; 52356; 76000; 81025; 87635; G2023; J7120; C1769; C2617; J2405; U0003

== ENCOUNTER → 2020-01-03 09:32 | Outpatient (CLI) | payer OTHER, SELFPAY ==
[2019-12-26 10:32] VITALS: BMI 23.7
--- NOTE | 2020-01-03 09:55 | RAD_ITS ---
STUDY: X-RAY - ABDOMEN/PELVIS REASON FOR EXAM: Female, 34 years old. KIDNEY STONE TECHNIQUE: Single AP view of the abdomen / pelvis. COMPARISON: 12/18/2019. FINDINGS: Since prior study patient has had a left ureteral stent positioned in grossly satisfactory position. Again seen are very numerous renal stones are seen throughout both kidneys worse on the right. No definite stones are seen along the course of the left ureteral stent. There is an unremarkable bowel gas pattern. There is no demonstrated free abdominal air. The visualized liver, spleen and kidneys are grossly normal in size and morphology. Normal soft tissue structures. Normal visualized osseous structures. RAD/Abdomen Single View IMPRESSION: Since prior study patient has had a left ureteral stent positioned in grossly satisfactory position. Electronically Signed: Ty Avalos MD at 20:36 EDT , Service support ,
[2020-01-03 11:30] LABS: PTHIN 67.3 pg/mL (18.4-80.1)
== END ==
PROVIDERS: PCP Family Medicine; Referring Provider Nurse Practitioner Adult Health; Visit Provider Nurse Practitioner Adult Health
DX: N20.0 Calculus of kidney (principal)
CPT/HCPCS: 36415; 74018; 83970

== ENCOUNTER 2020-02-01 06:05 | Day surgery (SDC) | payer SELFPAY ==
[2019-12-26 10:32] VITALS: BMI 23.7
[2020-02-01] VITALS (8 sets, daily range): BP systolic 114–127; BP diastolic 65–94; PULSE 63–91; RESP 16; TEMP 36.7–37.4; O2SAT 97–100; BMI 24.3
[2020-02-01 06:29] LABS: Internal QC Validated? YES +Cl - CLEAR BKGD; Pregnancy, Urine Negative Negative
[2020-02-01] MEDS: Lactated Ringers 1,000 ML 100 ML IV ×2 (06:38→08:57)
--- NOTE | 2020-02-01 07:20 | PCM.HP.STD ---
Problem List (1) Right renal stone Status: Acute History of Present Illness Date of Admission: 02/01/20 Chief Complaint: Right renal calculi multiple The patient is a 34 year old female was sent to have bilateral renal stones she underwent procedure for the left side lasered significant amount of stone the left side she still has 1 fragment left we decided to leave this alone and watch it for now. On the right side she has multiple fragments and plan to proceed with laser lithotripsy of stones in the right side. We discussed possibly going for surgery in the left side but we decided to change treat the stone on the right side and watch the stone in the left side. Past Medical History Allergies No Known Allergies Allergy (Verified 01/25/20 10:53) Home Medications: Ambulatory Orders Medication Instructions Recorded Norethindrone 1 tab PO DAILY 07/02/19 Multivitamin 1 tab PO DAILY 01/25/20 Surgical History: no surgical history Smoking Status: Never smoker Review of Systems Constitutional: Denies: Chills, Fever, Weight Change HEENT: Denies: Head Aches, Sinus Congestion, Sinus Drainage Cardiovascular: Denies: Chest Pain, Palpitations Respiratory: Denies: Cough, Shortness of breath at rest, Sputum production Gastrointestinal: Denies: Abdominal Pain, Nausea, Vomiting Genitourinary: Denies: Dysuria Musculoskeletal: Denies: Joint Pain, Joint Tenderness Skin: Denies: Rash, Wounds Neurological: Denies: Numbness, Tingling, Focal weakness Psychiatric: Denies: Anxiety, Depression, Homicidal Ideations, Suicidal Ideations Hematologic/ Lymphatic: Denies: Easy Bruising, Easy Bleeding VTE Information - Inpt Only VTE Present on Admission: No VTE Mechan Device Prophylaxis: SCD's Patient Problems: Active and Suspected Problems Right renal stone (Acute) - Physical Exam Vitals/I&O's: Vital Signs Temp Pulse Resp BP Pulse Ox 99.3 F H 81 16 122/65 H 99 02/01/20 06:27 02/01/20 06:27 02/01/20 06:27 02/01/20 06:27 02/01/20 06:27 Oxygen Delivery Method Room Air Weight: 70.5 kg Body Mass Index (BMI) 24.3 General: Alert, Oriented x3, Cooperative HEENT: Atraumatic, PERRLA, EOMI, Normocephalic Neck: Supple, No JVD, Negative Carotid Bruits Lungs: Clear to auscultation, Normal air movement Cardiovascular: Regular rate, No murmurs Abdomen: Bowel Sounds Present, Soft, Non Tender Extremities: No edema, Capillary Refill Less than 3 Seconds Skin: No rashes, No breakdown Musculoskeletal: No Tenderness to Palpation of Joints or Extremities Neurological: Cranial nerves II-XII grossly intact Psych/Mental Status: Normal Affect, Appropriate Laboratory Results 02/01/20 06:24: Urine Test Negative Current Medications Cefazolin Sodium 2 gm/ Sodium (Chloride) 110 mls @ 150 mls/hr IV PREOP ONE Stop: 02/01/20 08:03 Lactated Ringer's () 1,000 mls @ 100 mls/hr IV .Q10H BATSHEVA Last Admin: 02/01/20 06:38 Dose: 100 mls/hr Documented by: Assessment/Plan All Active Problems Left renal stone (Acute) Right renal stone (Acute) Plan for right ureteroscopy laser lithotripsy of stones and stent placement.
--- NOTE | 2020-02-01 07:23 | DCINST_ITS ---
Discharge Diet: Light diet - advance as tolerated Discharge Activity: Return to Normal Activity Call your doctor if your incision/area has: Sudden Increased Bleeding Call your doctor if you observe: Fever of 101 or Higher Suture Line Care: Avoid Pulling/Pushing, Avoid Pinching/Bending Allergies/Adverse Reactions: Allergies No Known Allergies Allergy (Verified 01/25/20 10:53) Medications to take at Discharge Norethindrone 1 tab PO DAILY 07/02/19 Multivitamin 1 tab PO DAILY 01/25/20 Primary Care Physician: Nash Hopper MD [Primary Care Provider] - Test Results: Test results from this visit will be discussed in further detail at your follow- up appointment, if applicable. Please Follow Up With: Alex Brennan MD When: please call to make an appointment.
[2020-02-01] MEDS: Cefazolin 2 GM in 0.9% Normal Saline 100 ML IV (07:26)
[2020-02-01] MEDS: Lubricating Jelly 60 GM Tube 30 GM TOPICAL (07:45)
--- NOTE | 2020-02-01 08:28 | PCM.OPRPT ---
Problem List (1) Right renal stone Status: Acute Report of Operation Date of Procedure: 02/01/20 Pre-Operative Diagnosis: Right multiple renal calculi Post-Operative Diagnosis: Same Surgery/Procedure Performed:: Cystoscopy, retrograde pyelogram, interpretation fluoroscopic images, balloon dilation of the right ureter, right ureteroscopy laser lithotripsy of stones and stent placement. Description of Surgical Findings:: 34-year-old female with multiple large stones in the right kidney plan to proceed with right ureteroscopy laser lithotripsy of the stones and also stent placement. Patient was taken back to the operating room after smooth induction of general anesthesia she was placed in dorsolithotomy position went into the bladder with a 21 [place] rigid cystourethroscope cannulated the right ureteral orifice with a Glidewire advanced a wire up into the kidney and then over the wire advanced a 12 [place] balloon dilator and balloon dilated the distal right ureter. I then went in with a flexible ureteroscope over the wire got up into the kidney performed a retrograde pyelogram we see contrast going to the upper pole midpole lower pole of the kidney identified multiple stones I then started treating the stones one by 1 there was a stones in the upper pole the kidney and the stone in the midpole of the kidney and the stone the lower pole the kidney took quite some time the laser all the stones a little tiny pieces at the end of the procedure all the visible stones I could find had been lasered on x-ray there was some few small stones are hard to see and confined but most of the major stones were taken care of. I then left the wire in place over the wire backloaded over the ureteroscope and then backloaded the stent up into the left kidney left the stent in good position pulled the wire stent coiled in the kidney bladder good position then drained the bladder but the string of the stent but cut it short and the patient anesthetic is being reversed plan to see her next week with a KUB and remove the stent. Interpretation of fluoroscopic images, contrast went up the ureter when up in the apical pole midpole lower pole the kidney can see stones filling the upper pole midpole the lower pole and the calyces. No extravasation of contrast contrast drained nicely from the kidney. Type of Anesthesia:: General Drains: stent right side - Admit VTE Documentation VTE Present on Admission: No VTE Mechan Device Prophylaxis: SCD's
[2020-02-01] MEDS: Ketorolac 15 MG/ML Vial IV (08:57)
== END 2020-02-01 10:30 | disposition home or self-care (01) ==
LOC: SDC 06:07 → AC 06:07
PROVIDERS: Anesthesiology; PCP Family Medicine; Referring Provider Urology; Visit Provider Urology
PROC: 0TJ98ZZ Inspection of Ureter, Via Natural or Artificial Opening Endoscopic (ICD-10-PCS; CPT 52352; principal; 2020-02-01 07:20)
DX: N20.0 Calculus of kidney (principal); Z11.59 Encounter for screening for other viral diseases; F41.9 Anxiety disorder, unspecified
CPT/HCPCS: 00918; 52356; 76000; 81025; 87635; G2023; J7120; C1769; C2617; J2405; U0003

== ENCOUNTER → 2020-02-19 | Outpatient (CLI) | payer OTHER, SELFPAY ==
[2020-02-01 06:27] VITALS: BMI 24.3
== END | disposition home or self-care (01) ==
LOC: LABSPEC 15:54
PROVIDERS: PCP Family Medicine; Referring Provider Urology; Visit Provider Urology
DX: N20.0 Calculus of kidney (principal)
CPT/HCPCS: 82360

== ENCOUNTER → 2020-08-25 09:48 | Outpatient (CLI) | payer OTHER, SELFPAY ==
[2020-02-01 06:27] VITALS: BMI 24.3
--- NOTE | 2020-08-25 09:55 | RAD_ITS ---
STUDY: X-RAY - ABDOMEN/PELVIS REASON FOR EXAM: Female, 35 years old. 6 month follow up, had stones/removed, no pain currently TECHNIQUE: Two AP supine views of the abdomen and pelvis. COMPARISON: 01/03/2020. FINDINGS: Lung base is not included in the [id number]. There has been interval removal of previously seen left-sided ureteral stent. There is an unremarkable bowel gas pattern. There is no demonstrated free abdominal air. Unchanged calcification in the left upper quadrant measuring approximately 7.4 mm in. Otherwise the visualized liver, spleen and kidneys are grossly normal in size and morphology. Normal soft tissue structures. Normal visualized osseous structures. RAD/Abdomen Single View IMPRESSION: Status post removal of left-sided ureteral stent. Unchanged calcification at the level of the left upper quadrant. Electronically Signed: Emy Szymanski MD at 0:25 EST , Service support ,
== END ==
PROVIDERS: PCP Family Medicine; Referring Provider Urology; Visit Provider Urology
DX: N20.0 Calculus of kidney (principal)
CPT/HCPCS: 74018

== ENCOUNTER 2021-10-16 08:40 | Outpatient (CLI) | payer OTHER, SELFPAY ==
[2021-10-16 09:59] LABS: hCG Titer Quant., Serum < 1 mIU/mL (1-3)
== END 2021-10-16 23:59 | disposition home or self-care (01) ==
LOC: WOBLAB 08:40
PROVIDERS: PCP Family Medicine; Visit Provider Student in an Organized Health Care Education/Training Program
DX: N91.0 Primary amenorrhea (principal)
CPT/HCPCS: 36415; 84702

== ENCOUNTER → 2022-07-27 | Outpatient (CLI) | payer OTHER, SELFPAY ==
[2022-07-27 14:22] LABS: Absolute Lymphocyte Count 1.86 X10^3/uL (0.83-4.51); Absolute Neutrophil Count 8.5 X10^3/uL (2.0-7.7); Basophil# 0.01 X10^3/uL; Basophil% 0.1 % (0-1); Eosinophil# 0.04 X10^3/uL; Eosinophils% 0.4 % (0-5); Hematocrit 40.7 % (37-47); Hemoglobin 13.4 g/dL (12.0-15.0); Lymphocyte # 1.86 X10^3/ul (0.83-4.51); Mean Corp Hgb Conc 32.9 g/dL (32-36); Mean Corpuscular Volume 82.1 fL (81-99); Mean Platelet Vol. 9.9 fl (6.2-12.0); Monocyte# 0.56 X10^3/uL; Monocyte% 5.1 % (0-10); NRBC Flagged by Analyzer 0 % (0-5); Neutrophil # 8.45 X10^3/uL (2.7-7.7); Neutrophil % 77.2 % (47-70); Platelet Count 226 K/mm3 (150-450); RBC Distribution Width CV 13.6 % (11.6-14.6); RBC Distribution Width SD 40.1 fl (35.1-43.9); Red Blood Count 4.96 M/mm3 (4.2-5.4); White Blood Count 10.9 K/mm3 (4.4-11.0)
[2022-07-27 16:16] LABS: HIV - WCH Non-Reactive (Nonreactive); Hepatitis B Surface Antigen Non-Reactive (Nonreactive); Hepatitis C Antibody Non-Reactive (Nonreactive); Rubella IgG Reactive (Nonreactive); Syphilis Antibodies Non-reactive
[2022-07-29 21:58] LABS: V-Zoster IgG (Immunity) 1707 index (Immune >165)
[2022-07-30 15:20] LABS: HPV APTIMA, High Risk Negative (Negative)
== END | disposition home or self-care (01) ==
LOC: WOBLAB 13:54
PROVIDERS: PCP Family Medicine; Visit Provider Student in an Organized Health Care Education/Training Program
DX: Z34.81 Encounter for supervision of other normal pregnancy, first trimester (principal)
CPT/HCPCS: 36415; 85025; 86703; 86762; 86780; 86787; 86803; 87086; 87088; 87340; 87624; 88175; G0145

== ENCOUNTER 2022-08-02 17:51 | Emergency (ER) | payer OTHER, SELFPAY ==
[2022-08-02 17:51] VITALS: BP 129/72; PULSE 94; RESP 16; TEMP 36.5; O2SAT 100; BMI 25.8
[2022-08-02 18:22] VITALS: BP 129/72; PULSE 90; RESP 17; TEMP 37.1; O2SAT 99
[2022-08-02 18:27] LABS: Bacteria 0 SEEN /hpf (None Seen); Mucous, Urine 0 SEEN /hpf (<or=2+); Squamous Epithelial Cells - UA 0 SEEN /hpf (5-10)
--- NOTE | 2022-08-02 18:36 | EDS_ITS ---
HPI History of Present Illness Chief Complaint: Flank Pain Detail of Chief Complaint: Lateral flank pain, nausea and vomiting first trimester Informant: patient and spouse/S.O. Onset/Context/Timing Onset: Today (At 0200) Context: Sudden Onset Timing: Continuous (Flank pain is been continuous) and Intermittent (Nausea and vomiting is been intermittent) Quality: Pain Location: Bilateral Current Severity: Mild Maximum Severity: Moderate Worsened by: Nothing Relieved by: Nothing Associated Symptoms Associated Symptoms: Odor to urine Narrative Narrative: Patient is a [age]-year-old G7, P3 AB 3 female who is 8 weeks gestation and presents with bilateral flank pain, odor to urine with nausea and vomiting started 0200. Patient's OB is Dr. Samanta Mena. Patient's urologist is Dr. Andrew Kunz She denies fever. She does endorse chills. She denies headache, visual, ocular auditory symptoms. She denies cardiorespiratory symptoms. She does report nausea and vomiting without blood or coffee-ground material. She denies diarrhea. She does endorse frequency. She denies blood in her urine. Patient has history of obstructing ureteral stones with infection that required emergent surgery. Patient has history of bilateral renal and ureteral stones. Prior similar symptoms: No Recent Illness/Hospitalization: No [facility] Medical History (Updated 08/02/22 @ 20:[address] Paresh Dickey MD) Ureteral stent present Home Medications norethindrone (contraceptive) 0.35 mg tablet 1 tab PO DAILY BC 07/02/19 [History Last Taken 01/31/20] multivitamin 1 tab PO DAILY 01/25/20 [History Last Taken 01/31/20] acetaminophen 500 mg tablet 500 mg PO Q4H PRN PRN Pain Score 1-10/10 #20 tabs 02/01/20 [Rx Last Taken Unknown] cephalexin 500 mg capsule 500 mg PO Q8 #9 caps 02/01/20 [Rx Last Taken Unknown] hydrocodone-acetaminophen 5-325mg 5mg-325mg 1 ea PO Q4H PRN PRN Pain Score 1- 10/10 #10 tabs 02/01/20 [Rx Last Taken Unknown] ibuprofen 600 mg tablet 600 mg PO Q6H PRN PRN Pain Score 1-10/10 #20 tabs 02/01/20 [Rx Last Taken Unknown] ondansetron 4 mg disintegrating tablet 4 mg PO Q8H PRN PRN Nausea #10 tabs 08/02/22 [Rx Last Taken Unknown] Allergy/AdvReac Type Severity Reaction Status Date / Time No Known Allergies Allergy Verified 08/02/22 17:53 Social History (Updated 08/02/22 @ 18:[address] Paresh Dickey MD) household members: spouse and children Smoking Status: Never smoker substance use type: does not use ROS ROS ED Constitutional Constitutional ED: Reports chills; Denies fever(s), subjective or sweats Eyes Eyes: Denies blurry vision, change in vision or diplopia ENT ENT ED: Denies ear pain, rhinorrhea or sore throat Cardiovascular Cardiovascular: Denies chest pain, palpitations or racing heartbeat Respiratory/Chest Respiratory/Chest: Denies cough, dyspnea or dyspnea on exertion Gastrointestinal Gastrointestinal: Reports abdominal pain, nausea, vomiting and other Details: Earlier today left lower quadrant abdominal pain. ; Denies constipation, diarrhea or melena Genitourinary Genitourinary ED: Reports urinary frequency and other Details: And odor as documented in the HPI narrative ; Denies dysuria or hematuria Musculoskeletal Musculoskeletal: Denies arthralgias, back pain, myalgias or neck pain Integumentary Denies Abrasions or rash Neurologic Neurologic: Denies headache(s), paresthesias or weakness Hematologic/Lymphatic Hematologic/Lymphatic: Reports systems reviewed and no addt'l complaints, except as documented EXAM Physical Exam Const Vital Signs: 08/02/22 17:51 08/02/22 18:22 Temperature 97.7 F L 98.7 F Temperature Source Temporal Temporal Pulse Rate 94 90 Respiratory Rate 16 17 Blood Pressure 129/72 H 129/72 H Blood Pressure Mean 91 91 Pulse Ox 100 99 Oxygen Delivery Method Room Air Room Air Positive well nourished and well developed General Appearance ED: well developed and NAD; Negative for pallor HEENT Reports dry mucous membranes HEENT Narrative: Had a atraumatic no cephalic. Ears normal. Nares patent. Uvula midline. No deviation tongue with protrusion. No erythema or exudate the posterior pharynx. Mouth ED: Yes dry mucous membranes Mouth: dry mucous membranes Eyes PERRL and EOMs intact bilaterally General Eye ED: Negative for pale conjunctiva or scleral icterus Neck no lymphadenopathy, supple and no JVD Resp normal respiratory effort and clear to auscultation bilaterally Cardio regular rate, regular rhythm, S1 normal heart sound, S2 normal heart sound and no murmurs GI normal to inspection, nondistended, normoactive bowel sounds, non-tender, non- distended, hepatosplenomegaly and no masses Auscultation: hypoactive bowel sounds Palpation: soft Back/Spine no CVA tenderness Thoracic Spine / Upper Back: Negative for thoracic spinal tenderness Lumbar Spine / Lower Back: Negative for lumbar spinal tenderness Extremity normal to inspection General Extremety ED: Negative for edema or tenderness General Extremity: Negative for edema Neuro oriented x3, CN's II-XII intact bilaterally and no sensory deficits noted Sensorium / Orientation: alert Psych mental status grossly normal Skin no rashes or lesions noted, no wounds and skin turgor normal General Skin Exam: elasticity normal; Negative for jaundice or pallor MDM MDM MDM Narrative Medical decision making narrative: With complaint of odor to urine obtain UA to assess for infection. Also determined there is blood and need to consider ultrasound to evaluate for hydronephrosis/hydroureter since she is . There is no CVA tenderness. Clinically she does not have pyelonephritis. Patient does appear clinically dehydrated. IV fluids were ordered. Antiemetic was ordered. Because of her history of kidney problems BMP was obtained to assess renal function and electrolytes. CBC to assess white count differential. CT of the abdomen pelvis was not ordered since patient is not writhing in pain and she is , first trimester. There is greater risk to fetus from radiation then potential benefit by scanning patient. Review prior records regarding infected obstructing stones requiring emergent surgery. Confirmed that her urologist is Dr. Andrew Brennan. Patient was discharged home with prescription for antiemetic. She declined opiate analgesics. She was instructed to apply ice to her back and take Tylenol. She was informed there is no evidence of bladder or kidney infection. Lab Data Attestation: I reviewed the patient's lab results. Lab results narrative: White count is elevated. Slightly higher than 1 would expect her only being in her first trimester of . There is no bandemia. UA reveals gravity 1.020. Positive ketones, occult blood and leukoesterase. Negative nitrites. There is only 0-5 WBCs which is normal. There are no squamous epithelial cells nor is or any bacteria. Basic metabolic panel is unremarkable. Renal function is normal. Labs: Laboratory Results - last 24 hr 08/02/22 08/02/22 08/02/22 18:15 18:15 18:15 WBC 16.4 H RBC 5.41 H Hgb 14.1 Hct 44.9 MCV 83.0 MCH 26.1 L MCHC 31.4 L RDW Std Deviation 41.6 RDW Coeff of Maximo 13.9 Plt Count 224 MPV 10.3 Immature Gran % (Auto) 0.500 Neut % (Auto) 90.9 H Lymph % (Auto) 4.5 L [place] % (Auto) 4.0 Eos % (Auto) 0.0 Baso % (Auto) 0.1 Absolute Neuts (auto) 14.9 H Absolute Lymphs (auto) 0.74 L Nucleated RBC % 0 Sodium Potassium Chloride Carbon Dioxide Anion Gap BUN Creatinine Estim Creat Clear Calc Est GFR (MDRD) Af Amer Est GFR (MDRD) Non-Af BUN/Creatinine Ratio Glucose Calcium Serum , Qual POSITIVE H Urine Color Yellow Urine Clarity Clear Urine pH 6.5 Ur Specific [place] 1.020 Urine Protein 15 H Urine Glucose (UA) Normal Urine Ketones 15 H Urine Occult Blood 10 H Urine Nitrite Negative Urine Bilirubin Negative Urine Urobilinogen Normal Ur Leukocyte Esterase 25 H Urine RBC 0-5 SEEN Urine WBC 0-5 SEEN Ur Squamous Epith Cells 0 SEEN Urine Bacteria 0 SEEN Urine Mucus 0 SEEN 08/02/22 18:15 WBC RBC Hgb Hct MCV MCH MCHC RDW Std Deviation RDW Coeff of Maximo Plt Count MPV Immature Gran % (Auto) Neut % (Auto) Lymph % (Auto) [place] % (Auto) Eos % (Auto) Baso % (Auto) Absolute Neuts (auto) Absolute Lymphs (auto) Nucleated RBC % Sodium 137 Potassium 3.7 Chloride 105 Carbon Dioxide 24.0 Anion Gap 8 BUN 10 Creatinine 0.73 Estim Creat Clear Calc 104.60 Est GFR (MDRD) Af Amer 117 Est GFR (MDRD) Non-Af 97 BUN/Creatinine Ratio 13.7 Glucose 110 H Calcium 8.9 Serum , Qual Urine Color Urine Clarity Urine pH Ur Specific [place] Urine Protein Urine Glucose (UA) Urine Ketones Urine Occult Blood Urine Nitrite Urine Bilirubin Urine Urobilinogen Ur Leukocyte Esterase Urine RBC Urine WBC Ur Squamous Epith Cells Urine Bacteria Urine Mucus Discharge Plan Triage Chief Complaint: Flank Pain ED Provider: Paresh Dickey Dx/Rx/DC Orders Clinical Impression: Nausea & vomiting, Chills (without fever), Neutrophilic leukocytosis, First trimester , Bilateral flank pain Instructions: ED Flank Pain, Uncertain Cause, ED Vomiting (Adult) Prescriptions: New ondansetron [ondansetron] 4 mg tablet,disintegrating 4 mg PO Q8H PRN PRN (Reason: Nausea) Qty: 10 0RF No Action norethindrone (contraceptive) 0.35 MG tablet 1 tab PO DAILY multivitamin 1 EACH tablet 1 tab PO DAILY acetaminophen 500 MG tablet 500 mg PO Q4H PRN PRN (Reason: Pain Score 1-10/10) Qty: 20 0RF cephalexin 500 MG capsule 500 mg PO Q8 Qty: 9 0RF ibuprofen 600 MG tablet 600 mg PO Q6H PRN PRN (Reason: Pain Score 1-10/10) Qty: 20 0RF hydrocodone-acetaminophen 1 EACH tablet 1 ea PO Q4H PRN PRN (Reason: Pain Score 1-10/10) Qty: 10 0RF Primary Care Provider: Nash Hopper Referrals: Nash Hopper MD [Primary Care Provider] - 1 Week if not improving Abby Mena DO [Med Staff - Active Staff] - 3-5 Days if not improving Disposition Disposition: Home, Self Care
[2022-08-02 18:37] LABS: Color, Urine Yellow (Yellow); Glucose, Dipstick Normal (Normal); Ketone-Dipstick 15 mg/dl (Negative); Leukocyte Esterase-Dipstick 25 /ul (Negative); Nitrite-Dipstick Negative (Negative); Occult Blood-Urine 10 /ul (Negative); Protein-Dipstick 15 mg/dl (Negative); Urine Bilirubin Dipstick Negative (Negative); Urine Clarity Clear (Clear); Urine Urobilinogen Normal (Normal); Urine pH 6.5 (5.0 - 8.0)
[2022-08-02] MEDS: Ondansetron 4 MG/2 ML Vial IV (18:47)
[2022-08-02] MEDS: 0.9% Normal Saline 1,000 ML 1000 ML IV (18:47)
[2022-08-02 18:49] LABS: Absolute Lymphocyte Count 0.74 X10^3/uL (0.83-4.51); Absolute Neutrophil Count 14.9 X10^3/uL (2.0-7.7); Basophil# 0.02 X10^3/uL; Basophil% 0.1 % (0-1); Hematocrit 44.9 % (37-47); Hemoglobin 14.1 g/dL (12.0-15.0); Lymphocyte # 0.74 X10^3/ul (0.83-4.51); Lymphocyte % 4.5 % (19-41); Mean Corp Hgb Conc 31.4 g/dL (32-36); Mean Corpuscular Hgb 26.1 pg (27.0-32.0); Mean Platelet Vol. 10.3 fl (6.2-12.0); Monocyte# 0.65 X10^3/uL; NRBC Flagged by Analyzer 0 % (0-5); Neutrophil # 14.88 X10^3/uL (2.7-7.7); Neutrophil % 90.9 % (47-70); Platelet Count 224 K/mm3 (150-450); RBC Distribution Width CV 13.9 % (11.6-14.6); RBC Distribution Width SD 41.6 fl (35.1-43.9); Red Blood Count 5.41 M/mm3 (4.2-5.4); White Blood Count 16.4 K/mm3 (4.4-11.0)
[2022-08-02 18:57] LABS: Anion Gap 8 (5-15); BUN 10 mg/dL (7-18); BUN/Creat Ratio 13.7 RATIO (10-20); Calcium,Total 8.9 mg/dL (8.5-10.1); Chloride 105 mmol/L (98-107); Creatinine, Serum 0.73 mg/dL (0.55-1.02); EST Glomerular Filtration Rate 97 mL/min (>60); Est Glom Filt Rate - Afr Amer 117 mL/min (>60); Glucose 110 mg/dL (74-106); Internal QC Validated? YES +Cl - CLEAR BKGD; Potassium 3.7 mmol/L (3.5-5.1); Sodium Level 137 mmol/L (136-145)
[2022-08-02 18:58] LABS: Pregnancy, Serum, hCG Quali. POSITIVE Negative
[2022-08-02 19:01] LABS: Red Blood Cells-Urine 0-5 SEEN /hpf (0-5); White Blood Cells 0-5 SEEN /hpf (0-5)
== END 2022-08-02 20:51 | disposition home or self-care (01) ==
PROVIDERS: Emergency Provider Emergency Medicine; PCP Family Medicine; Visit Provider Emergency Medicine
DX: O26.891 Other specified pregnancy related conditions, first trimester (principal); O09.521 Supervision of elderly multigravida, first trimester; Z3A.08 8 weeks gestation of pregnancy; R10.9 Unspecified abdominal pain; O99.891 Other specified diseases and conditions complicating pregnancy; R35.0 Frequency of micturition; O99.111 Other diseases of the blood and blood-forming organs and certain disorders involving the immune mechanism complicating pregnancy, first trimester; D72.828 Other elevated white blood cell count; O21.9 Vomiting of pregnancy, unspecified
CPT/HCPCS: 80048; 81001; 84703; 85025; 96361; 96374; 99283; J7030; A4216; J2405

== ENCOUNTER → 2022-11-23 | Outpatient (CLI) | payer OTHER, SELFPAY ==
[2022-11-23 10:29] LABS: Absolute Lymphocyte Count 1.83 X10^3/uL (0.83-4.51); Absolute Neutrophil Count 8.4 X10^3/uL (2.0-7.7); Basophil# 0.01 X10^3/uL; Basophil% 0.1 % (0-1); Eosinophil# 0.06 X10^3/uL; Eosinophils% 0.6 % (0-5); Hematocrit 41.4 % (37-47); Hemoglobin 12.8 g/dL (12.0-15.0); Lymphocyte # 1.83 X10^3/ul (0.83-4.51); Lymphocyte % 16.8 % (19-41); Mean Corp Hgb Conc 30.9 g/dL (32-36); Mean Corpuscular Hgb 26.6 pg (27.0-32.0); Mean Corpuscular Volume 86.1 fL (81-99); Mean Platelet Vol. 10.5 fl (6.2-12.0); Monocyte# 0.53 X10^3/uL; Monocyte% 4.9 % (0-10); NRBC Flagged by Analyzer 0 % (0-5); Neutrophil # 8.38 X10^3/uL (2.7-7.7); Neutrophil % 76.9 % (47-70); Platelet Count 153 K/mm3 (150-450); RBC Distribution Width CV 14.1 % (11.6-14.6); RBC Distribution Width SD 44.2 fl (35.1-43.9); Red Blood Count 4.81 M/mm3 (4.2-5.4); White Blood Count 10.9 K/mm3 (4.4-11.0)
[2022-11-23 10:34] LABS: Glucose Challenge Gest 1H 50g 101 mg/dL (70-140)
[2022-11-23 11:03] LABS: Syphilis Antibodies Non-reactive
== END | disposition home or self-care (01) ==
LOC: WOBLAB 09:25
PROVIDERS: PCP Family Medicine; Visit Provider Student in an Organized Health Care Education/Training Program
DX: Z34.82 Encounter for supervision of other normal pregnancy, second trimester (principal)
CPT/HCPCS: 36415; 82950; 85025; 86780

== ENCOUNTER 2023-04-27 13:27 | Day surgery (SDC) | payer OTHER, SELFPAY ==
[2023-04-27 14:20] VITALS: BP 132/91; PULSE 81; RESP 16; TEMP 36.3; O2SAT 100; BMI 24.1
[2023-04-27 14:22] LABS: Internal QC Validated? YES +Cl - CLEAR BKGD; Pregnancy, Urine Negative Negative; Record Kit Lot#,Urine Preg HCG0000667200
[2023-04-27] MEDS: Lactated Ringers 1,000 ML 15 ML IV (14:22)
--- NOTE | 2023-04-27 14:49 | DCINST_ITS ---
Discharge Instructions Diet Discharge Diet: No restrictions Activity Discharge Activity: Return to Normal Activity and May Not Drive (while taking narcotic pain medications.) Dressing / Incision Call your doctor if you observe: Fever of 101 or Higher Follow Up Care Please Follow Up With: Alex Brennan MD When: Call [phone] for an appointment Test Results: Test results from this visit will be discussed in further detail at your follow- up appointment, if applicable. Discharge Plan Admission Primary Reason for Your Visit: treat kidney stone Attending Provider: Alex Brennan Primary Care Provider: Nash Hopper Discharge Orders/Prescriptions Prescriptions: New ciprofloxacin HCl [Cipro] 500 mg tablet 500 mg PO BID Qty: 3 0RF potassium citrate [Urocit-K 10] 10 mEq (1,080 mg) tablet extended release 2,160 mg PO BID Qty: 90 3RF Continued acetaminophen 500 MG tablet 500 mg PO Q4H PRN PRN (Reason: Pain Score 1-10/10) Qty: 20 0RF ibuprofen 600 MG tablet 600 mg PO Q6H PRN PRN (Reason: Pain Score 1-10/10) Qty: 20 0RF PNV cmb#95-ferrous fumarate-FA [] 28 mg iron- 800 mcg tablet 1 tab PO DAILY cholecalciferol (vitamin D3) [Vitamin D3] 25 mcg (1,000 unit) capsule 25 mcg PO DAILY Referrals / Follow Up: Nash Hopper MD [Primary Care Provider] - Alex Brennan MD [Med Staff - Active Staff] - Disposition Disposition (needs filled in before D/C Order can be placed): Home, Self Care
--- NOTE | 2023-04-27 14:49 | PCM.HP.STD ---
HPI - General General Date of Service: 04/27/23 HPI Narrative JAEL ORELLANA, is a 37 F who presents for treatment of left large obstructing calculi and she will need another stent. We will plan the laser multiple stones in left kidney today. [facility] Medical History (Updated 04/26/23 @ 14:23 by Estela England) Hx of vaginal delivery Kidney stone Ureteral stent present Home Medications acetaminophen 500 mg tablet 500 mg PO Q4H PRN PRN Pain Score 1-04/26 #20 tabs 02/01/20 [Rx Last Taken Unknown] ibuprofen 600 mg tablet 600 mg PO Q6H PRN PRN Pain Score 1-04/26 #20 tabs 02/01/20 [Rx Last Taken Unknown] cholecalciferol (vitamin D3) 25 mcg (1,000 unit) capsule (Vitamin D3) 25 mcg PO DAILY 04/26/23 [History Last Taken Unknown] vit no.95-ferrous fumarate 28 mg-folic acid 800 mcg tablet () 1 tab PO DAILY 04/26/23 [History Last Taken Unknown] ciprofloxacin HCl 500 mg tablet (Cipro) 500 mg PO BID #3 tabs 04/27/23 [Rx Last Taken Unknown] potassium citrate 10 mEq (1,080 mg) tablet,extended release (Urocit-K 10) 2,160 mg PO BID #90 tabs 04/27/23 [Rx Last Taken Unknown] Allergy/AdvReac Type Severity Reaction Status Date / Time No Known Allergies Allergy Verified 04/27/23 14:12 Surgical History (Updated 04/26/23 @ 14:23 by Estela England) Hx of cystoscopy Social History (Updated 08/02/22 @ 18:[address] Paresh Dickey MD) household members: spouse and children Smoking Status: Never smoker substance use type: does not use Vital Signs Vital Signs Vital Signs: 04/27/23 14:20 04/27/23 14:20 Temperature 97.3 F L Temperature Source Temporal Pulse Rate 81 Respiratory Rate 16 Respiratory Pattern Normal Blood Pressure 132/91 H Blood Pressure Mean 104 Blood Pressure Source Monitor Blood Pressure Position Semi-Fowlers Blood Pressure Location Right Arm Pulse Ox 100 Oxygen Delivery Method Room Air Weight Weight: 70 kg Body Mass Index (BMI) 24.1 Results Lab / Micro Data Labs: Laboratory Results - last 24 hr 04/27/23 14:05: Urine Test Negative
[2023-04-27] MEDS: Cefazolin 2 GM in 0.9% Normal Saline (100mL Bag) 100 ML IV (15:25)
--- NOTE | 2023-04-27 16:15 | PCM.OPRPT ---
Report of Operation Date of Procedure: 04/27/23 Pre-Operative Diagnosis: Left kidney stone status post stent Post-Operative Diagnosis: The same Surgery/Procedure Performed:: Cystoscopy, left ureteroscopy laser lithotripsy of stone, and retrograde pyelogram and left stent placement Description of Surgical Findings:: This is a 37-year-old female who had a large obstructing stone in the left proximal ureter she underwent cystoscopy and stent placement for infection and severe obstruction she now presents for treatment of the stone with laser lithotripsy. She was taken back to the operating room at a smooth induction of anesthesia she was placed in dorsolithotomy position. The urethrovaginal area prepped and draped in usual sterile fashion went in the bladder with a 21 [place] rigid cystourethroscope grabbed the existing stent pulled the stent out to the meatus and through the stent I advanced a wire up into the kidney then over the stent I went in with a flexible ureteroscope and I reached the stone I then used a 270 ?m laser fiber we set the energy fiber to 20 Hz and 0.4 J and started lasering the stone, we did put the patient in Trendelenburg to allow the stone to migrate to an upper pole or midpole calyx as it was being broken the stone did migrate to the midpole calyx and then continue lasering the stone and finally lasered the stone completely the only dust fragments were left after successfully lasering that stone we inspected the upper pole no other stones were seen midpole there was 1 small stone that was lasered and was taken care of and then the lower pole collection of fragments from the big stone that was lasered lasered this some more until satisfied that had lasered it completely into small fragments that all should pass on her own. We then performed a retrograde pyelogram to confirm the anatomy I then put a wire up into the kidney backloaded the ureteroscope worked our way all the way down the ureter and other stones were seen along the course of the ureter and then we placed a stent 6 [place] by 26 manage stent up in the left kidney. I did leave a string on the stent by did cut it short to prevent early extraction. I then drained the bladder patient anesthetic reversed plan to see her back in 1 week for cystoscopy stent removal Surgeon: Alex Brennan Type of Anesthesia: General Drains: left stent Estimated Blood Loss (mL): 0 Admit VTE Documentation VTE Present on Admission: No VTE Mechan Device Prophylaxis: SCD's VTE Pharm Prophylaxis ordered?: No
[2023-04-27 16:31] VITALS: BP 112/63; BP 132/91; PULSE 71; RESP 18; TEMP 36.1; O2SAT 98
[2023-04-27 16:45] VITALS: BP 126/75; BP 132/91; PULSE 66; RESP 16; O2SAT 99
[2023-04-27] MEDS: Lactated Ringers 1,000 ML 75 ML IV (16:53)
[2023-04-27 16:59] VITALS: BP 121/74; BP 132/91; PULSE 71; RESP 16; TEMP 36.8; O2SAT 100
[2023-04-27] MEDS: Ketorolac 15 MG/ML Vial IV (17:03)
[2023-04-27 17:44] VITALS: BP 132/91
== END 2023-04-27 17:59 | disposition home or self-care (01) ==
PROVIDERS: Anesthesiology; PCP Family Medicine; Referring Provider Urology; Visit Provider Urology
PROC: 0TJ98ZZ Inspection of Ureter, Via Natural or Artificial Opening Endoscopic (ICD-10-PCS; CPT 52352; principal; 2023-04-27 15:45)
DX: N20.0 Calculus of kidney (principal)
CPT/HCPCS: 52356; 00873; 76000; 81025; J7120; C1769; C2617; J2405